=== PATIENT | male | born 1985 | race Hispanic/Latino ===

== ENCOUNTER 2023-09-16 14:28 | Emergency (ER) ==
[~2023-09-16] VITALS: Ht 172.7 cm; Wt 86.4 kg
[2023-09-16 14:29] VITALS: BP 154/93; TEMP 98.6; O2SAT 98
== END 2023-09-16 16:39 | disposition left against medical advice (07) ==
LOC: M ED 14:28
DX: Z53.21 Procedure and treatment not carried out due to patient leaving prior to being seen by health care provider (principal)